=== PATIENT | male | born 1985 | race Caucasian/White ===

== ENCOUNTER 2016-05-31 10:28 | Inpatient (IN) | payer SELFPAY ==
[2016-05-31] VITALS (8 sets, daily range): BP systolic 128–150; BP diastolic 67–85; PULSE 67–97; RESP 16–22; TEMP 96.4–99; O2SAT 96–99
[~2016-05-31] VITALS: Ht 195.6 cm; Wt 78.0 kg
[2016-05-31] MEDS ORDERED: LORazepam 2 MG/ML VIAL IV ONE (10:45)
[2016-05-31] MEDS ORDERED: SODIUM CHLOR 0.9% 1000 ML INJ 1,000 ML IV ONE ×2 (10:45→13:00)
[2016-05-31 11:10] LABS: AUTOMATED NEUTROPHIL # 8.9 TH/MM3 (1.8-7.7); BASOPHIL # 0.1 TH/MM3 (0-0.2); BASOPHIL % 1.1 % (0.0-2.0); EOSINOPHIL # 0.1 TH/MM3 (0-0.4); EOSINOPHIL % 0.9 % (0.0-4.0); HEMATOCRIT 39.9 % (39.0-51.0); HEMO FLAGS DIFF FINAL; LYMPH % 20.8 % (9.0-44.0); LYMPHOCYTE # 2.8 TH/MM3 (1.0-4.8); MEAN CELL VOLUME 85.7 FL (80.0-100.0); MEAN CORPUSCULAR HEMOGLOBIN 29.4 PG (27.0-34.0); MEAN CORPUSCULAR HGB CONC 34.3 % (32.0-36.0); MONO % 10.6 % (0.0-8.0); NEUT % 66.6 % (16.0-70.0); PLATELET COUNT 207 TH/MM3 (150-450); RED BLOOD COUNT 4.66 MIL/MM3 (4.50-5.90); RED CELL DISTRIBUTION WIDTH 13.2 % (11.6-17.2); WHITE BLOOD COUNT 13.4 TH/MM3 (4.0-11.0)
[2016-05-31 11:24] LABS: ALT (GPT) 120 U/L (12-78); ANION GAP 12 MEQ/L (5-15); AST (GOT) 127 U/L (15-37); BICARBONATE 21.2 MEQ/L (21.0-32.0); BLOOD UREA NITROGEN 30 MG/DL (7-18); CHLORIDE 107 MEQ/L (98-107); GLOMERULAR FILTRATION RATE 83 ML/MIN (>89); POTASSIUM 3.6 MEQ/L (3.5-5.1); SODIUM (NA) 140 MEQ/L (136-145)
[2016-05-31 11:26] LABS: ACETAMINOPHEN LESS THAN 2.0 MCG/ML (10.0-30.0)
[2016-05-31 11:37] LABS: ALKALINE PHOSPHATASE 81 U/L (45-117); CREATINE KINASE 3627 U/L (39-308); TOTAL BILIRUBIN ADULT 0.9 MG/DL (0.2-1.0)
[2016-05-31 11:43] LABS: BLOOD, URINE NEG (NEG); COMMENT (UR) CULT NOT INDICATED; CULTURE IF INDICATED CULT NOT INDICATED; GLUCOSE,URINE NEG (NEG); GRANULAR CAST, URINE 6 /lpf; HYALINE CAST, URINE 5 /lpf (RARE); KETONE, URINE 10 mg/dL (NEG); MUCUS URINE FEW /lpf (OCC); NITRITE,URINE NEG (NEG); PH, URINE 5.5 (5.0-8.5); SQUAMOUS EPITHELIAL CELL URINE <1 /hpf (0-5); URINE COLOR YELLOW (YELLW/STRAW)
[2016-05-31 12:00] LABS: CKMB 50.2 NG/ML (0.5-3.6)
[2016-05-31 12:06] LABS: AMPHETAMINE, URINE POS (NEG); BARBITURATES, URINE NEG (NEG); COCAINE, URINE POS (NEG)
--- NOTE | 2016-05-31 13:24 | EKG ---
Date Performed: 05/31/2016 Time Performed: 10:32:28 PTAGE: 31 years EKG: Sinus rhythm POSSIBLE RIGHT VENTRICULAR CONDUCTION DELAY BORDERLINE ECG PREVIOUS TRACING : 01/05/2016 20.06 No significant change from previous tracing noted. DOCTOR: Refugio Whittaker Interpretating Date/Time 05/31/2016 13:24:44
--- NOTE | 2016-05-31 15:15 | PD ---
HPI Chief Complaint: Alcohol/Drug Intoxication Time Seen by Provider: 10:45 Travel History International Travel<30 days: No Contact w/Intl Traveler<30days: No Traveled to known affect area: No History of Present Illness HPI Patient is a 31 year old male who comes in under a Forte Act after using flacca and meth for 6 days. He says he has not slept in 6 days. He denies chest pain or SOB at this time. He has no complaints, but is unable to sit still and provide much other history. PFSH Past Medical History Cancer: No Cardiovascular Problems: No Diminished Hearing: No Endocrine: No Genitourinary: No Hepatitis: Yes (C) Immune Disorder: No Medical other: No (ivdu and abuse) Musculoskeletal: No Neurologic: No Psychiatric: No Reproductive: No Respiratory: No Immunizations Current: Yes Influenza Vaccination: Yes Past Surgical History Surgical History: No Previous Surgery Social History Alcohol Use: No Tobacco Use: Yes (2-3 CIG A DAY) Substance Use: Yes (by records-CRACK USE, FLAKKA, IVDA, DILAUDID, HERION/to me states iv meth) Allergies-Medications (Allergen,Severity, Reaction): Coded Allergies: No Known Allergies (Verified , 05/31/16) Reported Meds & Prescriptions Reported Meds & Active Scripts Active No Active Prescriptions or Reported Medications Review of Systems ROS Limitations: Intoxication, Altered Mental Status General / Constitutional: No: Fever, Chills HENT: No: Headaches Cardiovascular: No: Chest Pain or Discomfort Respiratory: No: Shortness of Breath Physical Exam Narrative GENERAL: awake and alert, agitated, moving all over the stretcher. SKIN: Warm and dry. No lesions or signs of infection. HEAD: Atraumatic. Normocephalic. EYES: Pupils equal and round. No scleral icterus. EOMI ENT: Mucous membranes pink and moist. NECK: Trachea midline. No JVD. CARDIOVASCULAR: tachycardia. No murmur appreciated. RESPIRATORY: No accessory muscle use. Clear to auscultation. Breath sounds equal bilaterally. GASTROINTESTINAL: Abdomen soft, non-tender, nondistended. MUSCULOSKELETAL: No obvious deformities. No clubbing. No cyanosis. No edema. NEUROLOGICAL: Awake and alert. No obvious cranial nerve deficits. Motor grossly within normal limits. PSYCHIATRIC: Appropriate mood and affect; insight and judgment normal. Data Data Last Documented VS Vital Signs Date Time Temp Pulse Resp B/P Pulse Ox O2 Delivery O2 Flow Rate FiO2 05/31/16 14:20 78 16 144/76 97 Nasal Cannula 2 05/31/16 10:31 99.0 Orders Complete Blood Count With Diff (05/31/16 10:45) Comprehensive Metabolic Panel (05/31/16 10:45) Iv Access Insert/Monitor (05/31/16 10:45) Ecg Monitoring (05/31/16 10:45) Lorazepam Inj (Ativan Inj) (05/31/16 10:45) Drug Screen, Random Urine (05/31/16 10:45) Alcohol (Ethanol) (05/31/16 10:45) Salicylates (Aspirin) (05/31/16 10:45) Tylenol (Acetaminophen) (05/31/16 10:45) Creatine Kinase (Cpk) (05/31/16 10:45) Urinalysis - C+S If Indicated (05/31/16 10:45) Sodium Chlor 0.9% 1000 Ml Inj (Ns 1000 M (05/31/16 10:45) CKMB (05/31/16 10:50) CKMB% (05/31/16 10:50) Electrocardiogram (05/31/16 10:32) Sodium Chlor 0.9% 1000 Ml Inj (Ns 1000 M (05/31/16 13:00) Admit Order (Ed Use Only) (05/31/16 ) Labs Laboratory Tests Test 05/31/16 05/31/16 05/31/16 00:00 10:50 10:55 Urine Opiates Screen POS Urine Barbiturates Screen NEG Urine Amphetamines Screen POS Urine Benzodiazepines Screen NEG Urine Cocaine Screen POS Urine Cannabinoids Screen NEG White Blood Count 13.4 TH/MM3 Red Blood Count 4.66 MIL/MM3 Hemoglobin 13.7 GM/DL Hematocrit 39.9 % Mean Corpuscular Volume 85.7 FL Mean Corpuscular Hemoglobin 29.4 PG Mean Corpuscular Hemoglobin 34.3 % Concent Red Cell Distribution Width 13.2 % Platelet Count 207 TH/MM3 Mean Platelet Volume 9.1 FL Neutrophils (%) (Auto) 66.6 % Lymphocytes (%) (Auto) 20.8 % Monocytes (%) (Auto) 10.6 % Eosinophils (%) (Auto) 0.9 % Basophils (%) (Auto) 1.1 % Neutrophils # (Auto) 8.9 TH/MM3 Lymphocytes # (Auto) 2.8 TH/MM3 Monocytes # (Auto) 1.4 TH/MM3 Eosinophils # (Auto) 0.1 TH/MM3 Basophils # (Auto) 0.1 TH/MM3 CBC Comment DIFF FINAL Differential Comment Sodium Level 140 MEQ/L Potassium Level 3.6 MEQ/L Chloride Level 107 MEQ/L Carbon Dioxide Level 21.2 MEQ/L Anion Gap 12 MEQ/L Blood Urea Nitrogen 30 MG/DL Creatinine 1.03 MG/DL Estimat Glomerular Filtration 83 ML/MIN Rate Random Glucose 54 MG/DL Calcium Level 9.5 MG/DL Total Bilirubin 0.9 MG/DL Aspartate Amino Transf 127 U/L (AST/SGOT) Alanine Aminotransferase 120 U/L (ALT/SGPT) Alkaline Phosphatase 81 U/L Total Creatine Kinase 3627 U/L Creatine Kinase MB 50.2 NG/ML Creatine Kinase MB % 1.4 % Total Protein 7.6 GM/DL Albumin 4.1 GM/DL Salicylates Level LESS THAN 1.7 MG/DL Acetaminophen Level LESS THAN 2.0 MCG/ML Ethyl Alcohol Level LESS THAN 3 MG/DL Urine Color YELLOW Urine Turbidity CLEAR Urine pH 5.5 Urine Specific [place] 1.030 Urine Protein 30 mg/dL Urine Glucose (UA) NEG mg/dL Urine Ketones 10 mg/dL Urine Occult Blood NEG Urine Nitrite NEG Urine Bilirubin NEG Urine Urobilinogen LESS THAN 2.0 MG/DL Urine Leukocyte Esterase NEG Urine RBC 2 /hpf Urine WBC 3 /hpf Urine Squamous Epithelial <1 /hpf Cells Urine Hyaline Casts 5 /lpf Urine Granular Casts 6 /lpf Urine Mucus FEW /lpf Microscopic Urinalysis Comment CULT NOT INDICATED MDM Medical Decision Making Medical Screen Exam Complete: Yes Emergency Medical Condition: Yes Medical Record Reviewed: Yes Interpretation(s) ECG shows NSR at 94, no ST elevation or depression Differential Diagnosis drug overdose vs electrolyte abnormalities vs psychosis Narrative Course Patient is a 31 year old male who comes in as a Forte Act after using multiple stimulants. He is unable to sit still on exam. IV established, Labs sent. Labs concerning for elevated CPK. Cr within normal limits. Patient given IVF and Ativan. Placed in observation to ensure resolution of Rhabdomyolysis. Diagnosis Primary Impression: Rhabdomyolysis Qualified Code: M62.82 - Non-traumatic rhabdomyolysis Admitting Information Admitting Physician Requests: Observation Scripts No Active Prescriptions or Reported Meds Condition: Yue Pereira MD May 31, 2016 15:14
[2016-05-31] MEDS ORDERED: ONDANSETRON HCL 4 MG/2 ML VIAL IV PUSH PRN (15:30)
--- NOTE | 2016-05-31 15:30 | HHI.HP ---
[facility] No Primary Care Physician Admission Diagnosis Rhabdomyolisis Diagnoses: (1) Drug overdose Diagnosis: Principal (2) Rhabdomyolysis Diagnosis: Principal Chief Complaint: drug overdose Travel History International Travel<30 Days: No Contact w/Intl Traveler <30 Da: No Traveled to Known Affected Are: No History of Present Illness patient is a 31 y/o male with history of hepatitis C who was brought to ER with drug overdose. he's not a good historian- however he says that he used Flacca and Meth last night. he received a dose of ativan earlier today. he denies any chest pain, sob, nausea or vomiting. Review of Systems ROS Limitations: Poor Historian Past Family Social History Past Medical History hepatitis C Past Surgical History none reported. Reported Medications none reported. Allergies: Coded Allergies: No Known Allergies (Verified , 05/31/16) Active Ordered Medications Current Medications Lorazepam 2 mg 2 mg ONCE ONCE IV Last administered on 05/31/16 10:53; Start 05/31/16 at 10:45; Stop 05/31/16 at 10:47; Status DC Sodium Chloride 1,000 ml @ 999 mls/hr BOLUS ONCE IV Last administered on 05/31 10:53; Start 05/31/16 at 10:45; Stop 05/31/16 at 11:45; Status DC Sodium Chloride 1,000 ml @ 999 mls/hr BOLUS ONCE IV Last administered on 05/31 13:20; Start 05/31/16 at 13:00; Stop 05/31/16 at 14:00; Status DC Sodium Chloride (NS 1000 ml Inj) 1,000 ml @ 125 mls/hr Q8H IV ; Start 05/31/16 at 15:30; Status UNV Ondansetron HCl (Zofran Inj) 4 mg Q8HR PRN IV PUSH NAUSEA; Start 05/31/16 at 15 :30; Status UNV Social History smokes a pack a day- uses cocaine and Flacca. doesn't drink. Physical Exam Vital Signs Vital Signs Date Time Temp Pulse Resp B/P Pulse Ox O2 Delivery O2 Flow Rate FiO2 05/31/16 14:20 78 16 144/76 97 Nasal Cannula 2 05/31/16 13:20 72 16 137/85 97 Nasal Cannula 2 05/31/16 12:26 81 18 142/81 96 Nasal Cannula 2 05/31/16 11:09 99 Nasal Cannula 2 05/31/16 10:38 97 22 134/67 96 Room Air 05/31/16 10:31 99.0 20 96 Physical Exam GENERAL: This is a well-nourished, well-developed patient, in no apparent distress. SKIN: No rashes, ecchymoses or lesions. Cool and dry. HEAD: Atraumatic. Normocephalic. No temporal or scalp tenderness. EYES: Pupils equal round and reactive. Extraocular motions intact. No scleral icterus. No injection or drainage. ENT: Nose without bleeding, purulent drainage or septal hematoma. Throat without erythema, tonsillar hypertrophy or exudate. Uvula midline. Airway patent. NECK: Trachea midline. No JVD or lymphadenopathy. Supple, nontender, no meningeal signs. CARDIOVASCULAR: Regular rate and rhythm without murmurs, gallops, or rubs. RESPIRATORY: Clear to auscultation. Breath sounds equal bilaterally. No wheezes , rales, or rhonchi. GASTROINTESTINAL: Abdomen soft, non-tender, nondistended. No hepato-splenomegaly , or palpable masses. No guarding. MUSCULOSKELETAL: Extremities without clubbing, cyanosis, or edema. No joint tenderness, effusion, or edema noted. No calf tenderness. Negative Homans sign bilaterally. NEUROLOGICAL: awake but somewhat restless. Laboratory Laboratory Tests Test 05/31/16 05/31/16 05/31/16 00:00 10:50 10:55 Urine Opiates Screen POS Urine Barbiturates Screen NEG Urine Amphetamines Screen POS Urine Benzodiazepines Screen NEG Urine Cocaine Screen POS Urine Cannabinoids Screen NEG White Blood Count 13.4 Red Blood Count 4.66 Hemoglobin 13.7 Hematocrit 39.9 Mean Corpuscular Volume 85.7 Mean Corpuscular Hemoglobin 29.4 Mean Corpuscular Hemoglobin 34.3 Concent Red Cell Distribution Width 13.2 Platelet Count 207 Mean Platelet Volume 9.1 Neutrophils (%) (Auto) 66.6 Lymphocytes (%) (Auto) 20.8 Monocytes (%) (Auto) 10.6 Eosinophils (%) (Auto) 0.9 Basophils (%) (Auto) 1.1 Neutrophils # (Auto) 8.9 Lymphocytes # (Auto) 2.8 Monocytes # (Auto) 1.4 Eosinophils # (Auto) 0.1 Basophils # (Auto) 0.1 CBC Comment DIFF FINAL Differential Comment Sodium Level 140 Potassium Level 3.6 Chloride Level 107 Carbon Dioxide Level 21.2 Anion Gap 12 Blood Urea Nitrogen 30 Creatinine 1.03 Estimat Glomerular Filtration 83 Rate Random Glucose 54 Calcium Level 9.5 Total Bilirubin 0.9 Aspartate Amino Transf 127 (AST/SGOT) Alanine Aminotransferase 120 (ALT/SGPT) Alkaline Phosphatase 81 Total Creatine Kinase 3627 Creatine Kinase MB 50.2 Creatine Kinase MB % 1.4 Total Protein 7.6 Albumin 4.1 Salicylates Level LESS THAN 1.7 Acetaminophen Level LESS THAN 2.0 Ethyl Alcohol Level LESS THAN 3 Urine Color YELLOW Urine Turbidity CLEAR Urine pH 5.5 Urine Specific [place] 1.030 Urine Protein 30 Urine Glucose (UA) NEG Urine Ketones 10 Urine Occult Blood NEG Urine Nitrite NEG Urine Bilirubin NEG Urine Urobilinogen LESS THAN 2.0 Urine Leukocyte Esterase NEG Urine RBC 2 Urine WBC 3 Urine Squamous Epithelial <1 Cells Urine Hyaline Casts 5 Urine Granular Casts 6 Urine Mucus FEW Microscopic Urinalysis Comment CULT NOT INDICATED Result Diagram: 05/31/16 1050 05/31/16 1050 Imaging EKG; sinus rhythm Assessment and Plan Assessment and Plan A/P - drug overdose continue supportive care with IV fluid and neuro-checks -rhabdomyolysis- continue aggressive IV hydration- monitor CPK and renal function -hypoglycemia- start on D5W- will monitor accu-check closely -elevated LFT's due to hepatitis C and rhabdomyolysis- will monitor Discussed Condition With ER physician and the patient. Problem Qualifiers (1) Rhabdomyolysis: Qualified Code: M62.82 - Non-traumatic rhabdomyolysis Duyen Martinez MD May 31, 2016 15:30
[2016-05-31] MEDS: LORazepam 2 MG/ML VIAL IV PUSH PRN ×2 (15:42→23:33)
[2016-05-31] MEDS: DEXT 5%-NACL 0.9% 1000 ML INJ 1,000 ML IV SCH (15:48)
[2016-05-31] MEDS ORDERED: SODIUM CHLOR 0.9% 1000 ML INJ 1,000 ML IV SCH (16:00)
[2016-06-01] VITALS (7 sets, daily range): BP systolic 128–158; BP diastolic 74–90; PULSE 74–97; RESP 16–23; TEMP 95.3–98.4; O2SAT 97–100
[2016-06-01] MEDS: DEXT 5%-NACL 0.9% 1000 ML INJ 1,000 ML IV SCH ×3 (00:50→17:18)
[2016-06-01] MEDS: LORazepam 2 MG/ML VIAL IV PUSH PRN ×3 (04:20→21:09)
[2016-06-01 04:51] LABS: AUTOMATED NEUTROPHIL # 3.8 TH/MM3 (1.8-7.7); BASOPHIL % 0.6 % (0.0-2.0); EOSINOPHIL # 0.4 TH/MM3 (0-0.4); EOSINOPHIL % 5.9 % (0.0-4.0); HEMO FLAGS DIFF FINAL; LYMPHOCYTE # 2.3 TH/MM3 (1.0-4.8); MEAN CELL VOLUME 86.8 FL (80.0-100.0); MEAN CORPUSCULAR HEMOGLOBIN 29.8 PG (27.0-34.0); MEAN CORPUSCULAR HGB CONC 34.3 % (32.0-36.0); MONO % 11.9 % (0.0-8.0); NEUT % 50.6 % (16.0-70.0); PLATELET COUNT 194 TH/MM3 (150-450); RED BLOOD COUNT 4.61 MIL/MM3 (4.50-5.90); RED CELL DISTRIBUTION WIDTH 13.5 % (11.6-17.2); WHITE BLOOD COUNT 7.4 TH/MM3 (4.0-11.0)
[2016-06-01 05:28] LABS: ALKALINE PHOSPHATASE 69 U/L (45-117); ALT (GPT) 97 U/L (12-78); ANION GAP 8 MEQ/L (5-15); AST (GOT) 99 U/L (15-37); BLOOD UREA NITROGEN 17 MG/DL (7-18); CHLORIDE 108 MEQ/L (98-107); CREATINE KINASE 1525 U/L (39-308); GLOMERULAR FILTRATION RATE 141 ML/MIN (>89); POTASSIUM 3.4 MEQ/L (3.5-5.1); SODIUM (NA) 139 MEQ/L (136-145)
[2016-06-01 05:49] LABS: CKMB 26.8 NG/ML (0.5-3.6)
--- NOTE | 2016-06-01 12:09 | HHI.PR ---
Subjective Remarks in no acute distress. denies pain. accu-checks stable. d/w the RN and no acute issues over night. Objective Vitals Vital Signs Date Time Temp Pulse Resp B/P Pulse Ox O2 Delivery O2 Flow Rate FiO2 06/01/16 11:50 96.4 75 20 145/82 100 06/01/16 08:00 95.3 77 20 149/79 98 06/01/16 00:00 98.4 87 16 128/74 99 05/31/16 21:06 98.8 82 18 132/83 98 05/31/16 17:30 96.4 72 18 128/82 99 05/31/16 15:39 67 18 150/81 99 Nasal Cannula 2 05/31/16 14:20 78 16 144/76 97 Nasal Cannula 2 05/31/16 13:20 72 16 137/85 97 Nasal Cannula 2 05/31/16 12:26 81 18 142/81 96 Nasal Cannula 2 I/O 05/31/16 05/31/16 05/31/16 06/01/16 06/01/16 06/01/16 07:00 15:00 23:00 07:00 15:00 23:00 Intake Total 300 ml Output Total 650 ml Balance -350 ml Intake Oral 300 ml Output Urine Total 650 ml Result Diagram: 06/01/16 0344 06/01/16 0344 Objective Remarks GENERAL: This is a well-nourished, well-developed patient, in no apparent distress. CARDIOVASCULAR: Regular rate and regular rhythm without murmurs, gallops, or rubs. RESPIRATORY: Clear to auscultation. Breath sounds equal bilaterally. No wheezes , rales, or rhonchi. GASTROINTESTINAL: Abdomen soft, non-tender, nondistended. Normal, active bowel sounds MUSCULOSKELETAL: Extremities without clubbing, cyanosis, or edema. NEURO: Alert & Oriented x4 to person, place, time, situation. Moves all ext x4 Procedures none Medications and IVs Current Medications Lorazepam 2 mg 2 mg ONCE ONCE IV Last administered on 05/31/16 10:53; Start 05/31/16 at 10:45; Stop 05/31/16 at 10:47; Status DC Sodium Chloride 1,000 ml @ 999 mls/hr BOLUS ONCE IV Last administered on 05/31 10:53; Start 05/31/16 at 10:45; Stop 05/31/16 at 11:45; Status DC Sodium Chloride 1,000 ml @ 999 mls/hr BOLUS ONCE IV Last administered on 05/31 13:20; Start 05/31/16 at 13:00; Stop 05/31/16 at 14:00; Status DC Sodium Chloride (NS 1000 ml Inj) 1,000 ml @ 125 mls/hr Q8H IV ; Start 05/31/16 at 16:00; Stop 05/31/16 at 16:00; Status DC Ondansetron HCl 4 mg 4 mg Q8HR PRN IV PUSH NAUSEA; Start 05/31/16 at 15:30 Dextrose/Sodium Chloride (D5W-NS 1000 ml Inj) 1,000 ml @ 125 mls/hr Q8H IV Last administered on 06/01/16 08:51; Start 05/31/16 at 15:45 Lorazepam (Ativan Inj) 1 mg Q4H PRN IV PUSH ANXIETY Last administered on 04:20; Start 05/31/16 at 15:45 A/P Assessment and Plan - drug overdose continue supportive care with IV fluid and neuro-checks -rhabdomyolysis- improving- continue aggressive IV hydration- monitor CPK and renal function -hypoglycemia- resolved- started on D5W- -elevated LFT's due to hepatitis C and rhabdomyolysis- will monitor Discharge Planning possible dc home in if stable. Duyen Martinez MD Jun 01, 2016 12:09
[2016-06-01] MEDS ORDERED: POTASSIUM CHLORIDE 20 MEQ CONTROLLED RELEASE TAB PO ONE (12:15)
[2016-06-02] MEDS ORDERED: KETOROLAC TROMETHAMINE 60 MG/2 ML (IM) VIAL IM ONE (01:30)
[2016-06-02] MEDS: DEXT 5%-NACL 0.9% 1000 ML INJ 1,000 ML IV SCH (02:16)
[2016-06-02 04:51] VITALS: BP 128/76; PULSE 87; RESP 18; TEMP 98.4; O2SAT 98
[2016-06-02 05:38] LABS: CKMB 7.2 NG/ML (0.5-3.6)
--- NOTE | 2016-06-02 08:16 | HHI.PR ---
Subjective Remarks in no acute distress. denies pain. resting comfortably. d/w the RN and no acute issues over night. Objective Vitals Vital Signs Date Time Temp Pulse Resp B/P Pulse Ox O2 Delivery O2 Flow Rate FiO2 06/02/16 04:51 98.4 87 18 128/76 98 06/01/16 23:44 97.6 74 23 157/90 99 06/01/16 19:17 98.0 97 18 158/86 98 06/01/16 16:05 95.4 80 20 145/89 97 06/01/16 11:50 96.4 75 20 145/82 100 06/01/16 08:16 98 Nasal Cannula 1.00 I/O 06/01/16 06/01/16 06/01/16 06/02/16 06/02/16 06/02/16 07:00 15:00 23:00 07:00 15:00 23:00 Intake Total 1440 ml 2640 ml 240 ml Output Total 1200 ml 4150 ml Balance 240 ml -1510 ml 240 ml Intake Oral 1440 ml 2640 ml 240 ml Output Urine Total 1200 ml 4150 ml # Voids 1 # Bowel Movements 1 Result Diagram: 06/01/16 0344 06/01/16 0344 Objective Remarks GENERAL: This is a well-nourished, well-developed patient, in no apparent distress. CARDIOVASCULAR: Regular rate and regular rhythm without murmurs, gallops, or rubs. RESPIRATORY: Clear to auscultation. Breath sounds equal bilaterally. No wheezes , rales, or rhonchi. GASTROINTESTINAL: Abdomen soft, non-tender, nondistended. Normal, active bowel sounds MUSCULOSKELETAL: Extremities without clubbing, cyanosis, or edema. NEURO: Alert & Oriented x4 to person, place, time, situation. Moves all ext x4 Procedures none Medications and IVs Current Medications Lorazepam 2 mg 2 mg ONCE ONCE IV Last administered on 05/31/16 10:53; Start 05/31/16 at 10:45; Stop 05/31/16 at 10:47; Status DC Sodium Chloride 1,000 ml @ 999 mls/hr BOLUS ONCE IV Last administered on 05/31 10:53; Start 05/31/16 at 10:45; Stop 05/31/16 at 11:45; Status DC Sodium Chloride 1,000 ml @ 999 mls/hr BOLUS ONCE IV Last administered on 05/31 13:20; Start 05/31/16 at 13:00; Stop 05/31/16 at 14:00; Status DC Sodium Chloride (NS 1000 ml Inj) 1,000 ml @ 125 mls/hr Q8H IV ; Start 05/31/16 at 16:00; Stop 05/31/16 at 16:00; Status DC Ondansetron HCl 4 mg 4 mg Q8HR PRN IV PUSH NAUSEA; Start 05/31/16 at 15:30 Dextrose/Sodium Chloride (D5W-NS 1000 ml Inj) 1,000 ml @ 125 mls/hr Q8H IV Last administered on 06/02/16 02:16; Start 05/31/16 at 15:45 Lorazepam (Ativan Inj) 1 mg Q4H PRN IV PUSH ANXIETY Last administered on 21:09; Start 05/31/16 at 15:45 Potassium Chloride (KCl) 20 meq ONCE ONCE PO Last administered on 06/01/16 12 :29; Start 06/01/16 at 12:15; Stop 06/01/16 at 12:16; Status DC Ketorolac Tromethamine (Toradol Inj) 30 mg ONCE ONCE IM ; Start 06/02/16 at 01: 30; Stop 06/02/16 at 01:31; Status DC A/P Assessment and Plan - drug overdose- continue supportive care . counselled on drug abuse cessation. -rhabdomyolysis- improved after IV fluid. -hypoglycemia- resolved- -elevated LFT's due to hepatitis C and rhabdomyolysis- Discharge Planning discharge today. f/u; pcp. d/w the patient and case management. Duyen Martinez MD Jun 02, 2016 08:16
--- NOTE | 2016-06-02 08:17 | HHI.DCPOC ---
Discharge Care Plan Diagnosis: (1) Drug overdose (2) Rhabdomyolysis Your Health Problems Are: Anxiety Goals to Promote Your Health * To prevent worsening of your condition and complications * To maintain your health at the optimal level Directions to Meet Your Goals Take your medications as prescribed Follow your dietary instruction Follow activity as directed Keep your appointments as scheduled Take your immunizations and boosters as scheduled If your symptoms worsen call your PCP, if no PCP go to Urgent Care Center or Emergency Room Smoking is Dangerous to Your Health. Avoid second hand smoke Call the 24-hour hour crisis hotline for domestic abuse at Duyen Martinez MD Jun 02, 2016 08:17
--- NOTE | 2016-06-02 08:18 | HHI.DS ---
Discharge Summary Admission Date May 31, 2016 at 15:49 Discharge Date: Jun 02, 2016 Admitting Diagnosis Rhabdomyolisis (1) Drug overdose ICD Code: T50.901A Diagnosis: Principal (2) Rhabdomyolysis ICD Code: M62.82 Diagnosis: Principal Procedures none Brief History - From Admission patient is a 31 y/o male with history of hepatitis C who was brought to ER with drug overdose. he's not a good historian- however he says that he used Flacca and Meth last night. he received a dose of ativan earlier today. he denies any chest pain, sob, nausea or vomiting. CBC/BMP: 06/01/16 0344 06/01/16 0344 Significant Findings Laboratory Tests Test 05/31/16 05/31/16 05/31/16 06/01/16 00:00 10:50 10:55 03:44 Urine Opiates Screen POS (NEG) Urine Amphetamines Screen POS (NEG) Urine Cocaine Screen POS (NEG) White Blood Count 13.4 TH/MM3 (4.0-11.0) Monocytes (%) (Auto) 10.6 % 11.9 % (0.0-8.0) (0.0-8.0) Neutrophils # (Auto) 8.9 TH/MM3 (1.8-7.7) Monocytes # (Auto) 1.4 TH/MM3 (0-0.9) Blood Urea Nitrogen 30 MG/DL (7-18) Estimat Glomerular Filtration 83 ML/MIN (>89) Rate Random Glucose 54 MG/DL (74-106) Aspartate Amino Transf 127 U/L (15-37) 99 U/L (15-37) (AST/SGOT) Alanine Aminotransferase 120 U/L (12-78) 97 U/L (12-78) (ALT/SGPT) Total Creatine Kinase 3627 U/L 1525 U/L (39-308) (39-308) Creatine Kinase MB 50.2 NG/ML 26.8 NG/ML (0.5-3.6) (0.5-3.6) Salicylates Level LESS THAN 1.7 MG/DL (2.8-20.0) Acetaminophen Level LESS THAN 2.0 MCG/ML (10.0-30.0) Urine Protein 30 mg/dL (NEG-TRACE) Urine Ketones 10 mg/dL (NEG) Urine Mucus FEW /lpf (OCC) Eosinophils (%) (Auto) 5.9 % (0.0-4.0) Potassium Level 3.4 MEQ/L (3.5-5.1) Chloride Level 108 MEQ/L (98-107) Calcium Level 8.1 MG/DL (8.5-10.1) Total Protein 6.2 GM/DL (6.4-8.2) Albumin 3.1 GM/DL (3.4-5.0) Test 06/02/16 03:52 Total Creatine Kinase 540 U/L (39-308) Creatine Kinase MB 7.2 NG/ML (0.5-3.6) PE at Discharge GENERAL: This is a well-nourished, well-developed patient, in no apparent distress. CARDIOVASCULAR: Regular rate and regular rhythm without murmurs, gallops, or rubs. RESPIRATORY: Clear to auscultation. Breath sounds equal bilaterally. No wheezes , rales, or rhonchi. GASTROINTESTINAL: Abdomen soft, non-tender, nondistended. Normal, active bowel sounds MUSCULOSKELETAL: Extremities without clubbing, cyanosis, or edema. NEURO: Alert & Oriented x4 to person, place, time, situation. Moves all ext x4 Hospital Course - drug overdose- continue supportive care . counselled on drug abuse cessation. -rhabdomyolysis- improved after IV fluid. -hypoglycemia- resolved- -elevated LFT's due to hepatitis C and rhabdomyolysis- Pt Condition on Discharge: Fair Discharge Disposition: Trnsfr to Other Facility Discharge Time: <= 30 minutes Discharge Instructions DIET: Follow Instructions for: As Tolerated, No Restrictions Activities you can perform: Regular-No Restrictions Follow up Referrals: PCP Follow-up Duyen Martinez MD Jun 02, 2016 08:18
[2016-06-02 16:03] VITALS: BP 174/94; PULSE 83; RESP 18; TEMP 97.6; O2SAT 95
[2016-06-02 20:02] VITALS: BP 156/80; PULSE 98; RESP 18; TEMP 98.8; O2SAT 98
== END 2016-06-03 00:51 | disposition left against medical advice (07) | DRG 918 ==
LOC: NEPE 10:28 → NEDA 15:18 → OBSVTOIN 15:49 → NEPGCP 17:28
PROVIDERS: ADMIT Internal Medicine; ATTEND Internal Medicine
DX: T43.621A Poisoning by amphetamines, accidental (unintentional), initial encounter (principal); M62.82 Rhabdomyolysis; Y92.9 Unspecified place or not applicable; F17.210 Nicotine dependence, cigarettes, uncomplicated; E16.0 Drug-induced hypoglycemia without coma; B18.2 Chronic viral hepatitis C; F14.10 Cocaine abuse, uncomplicated
CPT/HCPCS: 80053; 80307; 80320; 80329; 81001; 82550; 82552; 82948; 85025; 93005; 96361; 96374; G0480; J2060; J7030; J7042

== ENCOUNTER 2016-09-17 23:13 | Emergency (ER) | payer SELFPAY ==
[~2016-09-17] VITALS: Ht 188 cm; Wt 78.0 kg
[2016-09-17 23:17] VITALS: BP 134/81; PULSE 72; RESP 18; TEMP 97.8; O2SAT 99
[2016-09-18] MEDS ORDERED: LIDOCAINE 1%/EPINEPHrine 1:100,000 SOLN 20 ML VIAL INFIL ONE
[2016-09-18] MEDS ORDERED: SODIUM CHLORIDE 0.9% FLUSH 10 ML FLUSH IVF PRN
[2016-09-18 00:17] LABS: AUTOMATED NEUTROPHIL # 7.8 TH/MM3 (1.8-7.7); BASOPHIL # 0.1 TH/MM3 (0-0.2); EOSINOPHIL # 0.4 TH/MM3 (0-0.4); HEMATOCRIT 43.1 % (39.0-51.0); LYMPHOCYTE # 3.3 TH/MM3 (1.0-4.8); MEAN CELL VOLUME 85.9 FL (80.0-100.0); MEAN CORPUSCULAR HEMOGLOBIN 27.9 PG (27.0-34.0); MEAN CORPUSCULAR HGB CONC 32.5 % (32.0-36.0); MONO % 9.2 % (0.0-8.0); NEUT % 60.8 % (16.0-70.0); PLATELET COUNT 259 TH/MM3 (150-450); RED BLOOD COUNT 5.02 MIL/MM3 (4.50-5.90); RED CELL DISTRIBUTION WIDTH 14.3 % (11.6-17.2); WHITE BLOOD COUNT 12.9 TH/MM3 (4.0-11.0)
[2016-09-18] MEDS ORDERED: CLIN1CAP5 PO (00:19)
--- NOTE | 2016-09-18 00:23 | PD ---
HPI Chief Complaint: Chest Pain Time Seen by Provider: 23:39 Travel History International Travel<30 days: No Contact w/Intl Traveler<30days: No Traveled to known affect area: No History of Present Illness HPI 31-year-old male arrives complaining of left forearm abscess for a few days. Pain is now constant, severe and worse with palpation. He's also had chest pain for about 2-3 months. 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 He is currently using. The quality of the chest pain is somewhat vague however he likens it to "eating malagasy fries too quickly." He has had no fever however reports a cough. He describes muscle aches and pains and arthralgias generalized. No history of diabetes hypertension or hyperlipidemia. He smokes 3 cigarettes a day or so. PFSH Past Medical History Cancer: No Cardiovascular Problems: No Diminished Hearing: No Endocrine: No Genitourinary: No Hepatitis: Yes (C) Immune Disorder: No Implanted Vascular Access Dvce: No Musculoskeletal: No Neurologic: No Psychiatric: No Reproductive: No Respiratory: No Immunizations Current: Yes Tetanus Vaccination: < 5 Years Influenza Vaccination: Yes Past Surgical History Surgical History: No Previous Surgery Social History Alcohol Use: No Tobacco Use: Yes (2-3 CIG A DAY) Substance Use: Yes (by records-CRACK USE, FLAKKA, IVDA, DILAUDID, HERION/to me states iv meth) Allergies-Medications (Allergen,Severity, Reaction): Coded Allergies: No Known Allergies (Verified , 09/17/16) Reported Meds & Prescriptions Reported Meds & Active Scripts Active Clindamycin (Clindamycin HCl) 150 Mg Cap 450 Mg PO Q8HR 10 Days Review of Systems Except as stated in HPI: all other systems reviewed are Neg General / Constitutional: No: Fever, Chills Cardiovascular: Positive: Chest Pain or Discomfort Psychiatric: Positive: Substance Abuse Physical Exam Narrative GENERAL: 31 yo M, WNWD, NAD SKIN: Warm and dry. L forearm abscess swelling with marked TTP. HEAD: Atraumatic. Normocephalic. EYES: Pupils equal and round. No scleral icterus. No injection or drainage. ENT: No nasal bleeding or discharge. Mucous membranes pink and moist. NECK: Trachea midline. No JVD. CARDIOVASCULAR: Regular rate and rhythm. No murmur. RESPIRATORY: No accessory muscle use. Clear to auscultation. Breath sounds equal bilaterally. GASTROINTESTINAL: Abdomen soft, non-tender, nondistended. Hepatic and splenic margins not palpable. MUSCULOSKELETAL: Extremities without clubbing, cyanosis, or edema. No obvious deformities. NEUROLOGICAL: Awake and alert. No obvious cranial nerve deficits. Motor grossly within normal limits. Five out of 5 muscle strength in the arms and legs. Normal speech. PSYCHIATRIC: Appropriate mood and affect; insight and judgment normal. Data Data Last Documented VS Vital Signs Date Time Temp Pulse Resp B/P Pulse Ox O2 Delivery O2 Flow Rate FiO2 09/17/16 23:32 61 18 100 09/17/16:17 97.8 134/81 Room Air VS reviewed Orders Electrocardiogram (09/17/16 23:51) Basic Metabolic Panel (Bmp) (09/17/16 23:51) Ckmb (Isoenzyme) Profile (09/17/16 23:51) Complete Blood Count With Diff (09/17/16 23:51) Magnesium (Mg) (09/17/16 23:51) Troponin I (09/17/16 23:51) Chest, Single Ap (09/17/16 23:51) Ecg Monitoring (09/17/16 23:51) Iv Access Insert/Monitor (09/17/16:51) Oximetry (09/17/16 23:51) Oxygen Administration (09/17/16 23:51) Sodium Chloride 0.9% Flush (Ns Flush) (09/18/16 00:00) Ct Pulmonary Angiogram (09/17/16 23:51) Urinalysis - C+S If Indicated (09/17/16 23:51) Drug Screen, Random Urine (09/17/16 23:51) Lidocai-Epi 1%-1:100,000 Inj (Xylocaine- (09/18/16 00:00) Lidocai-Epi 2%-1:100,000 Inj (Xylocaine- (09/18/16 00:30) CKMB (09/18/16 00:00) CKMB% (09/18/16 00:00) Sodium Chlor 0.9% 1000 Ml Inj (Ns 1000 M (09/18/16 01:00) Iohexol 350 Inj (Omnipaque 350 Inj) (09/18/16 00:56) Wound Culture And Gram Stain (09/18/16 01:31) Labs Laboratory Tests Test 09/18/16 00:00 White Blood Count 12.9 TH/MM3 Red Blood Count 5.02 MIL/MM3 Hemoglobin 14.0 GM/DL Hematocrit 43.1 % Mean Corpuscular Volume 85.9 FL Mean Corpuscular Hemoglobin 27.9 PG Mean Corpuscular Hemoglobin 32.5 % Concent Red Cell Distribution Width 14.3 % Platelet Count 259 TH/MM3 Mean Platelet Volume 8.8 FL Neutrophils (%) (Auto) 60.8 % Lymphocytes (%) (Auto) 26.0 % Monocytes (%) (Auto) 9.2 % Eosinophils (%) (Auto) 3.0 % Basophils (%) (Auto) 1.0 % Neutrophils # (Auto) 7.8 TH/MM3 Lymphocytes # (Auto) 3.3 TH/MM3 Monocytes # (Auto) 1.2 TH/MM3 Eosinophils # (Auto) 0.4 TH/MM3 Basophils # (Auto) 0.1 TH/MM3 CBC Comment AUTO DIFF Differential Comment AUTO DIFF CONFIRMED Sodium Level 138 MEQ/L Potassium Level 4.3 MEQ/L Chloride Level 101 MEQ/L Carbon Dioxide Level 33.2 MEQ/L Anion Gap 4 MEQ/L Blood Urea Nitrogen 14 MG/DL Creatinine 0.79 MG/DL Estimat Glomerular Filtration 113 ML/MIN Rate Random Glucose 91 MG/DL Calcium Level 8.9 MG/DL Magnesium Level 2.2 MG/DL Total Creatine Kinase 212 U/L Creatine Kinase MB 2.1 NG/ML Troponin I LESS THAN 0.02 NG/ML MDM Medical Decision Making Medical Screen Exam Complete: Yes Emergency Medical Condition: Yes Medical Record Reviewed: Yes Differential Diagnosis Endocarditis, abscess, cellulitis, pneumonia, coronary artery disease, polysubstance abuse Narrative Course CBC & BMP Diagram 09/18/16 00:00 Tn < 0.02 EKG: Sinus rate 65 normal axis and intervals Last Impressions Chest X-Ray 09/17/162350 Signed Impressions: Service Date/Time: September 23:52 - CONCLUSION: 1. No acute cardiopulmonary disease. Mark Rodriguez MD CT Angiography 09/17/162350 Signed Impressions: Service Date/Time: Sunday, September 18, 2016 00:46 - CONCLUSION: 1. No evidence of pulmonary embolism. 2. Subsegmental atelectasis left base. Mark Rodriguez MD We have thoroughly evaluated this 31 yo IVDU's chest pain and endocarditis is considered reasonably safely excluded. L forearm abscess drained. Clinda script. Return in 2 days discussed. Pt counseled re lifestyle modification. He verbalized understanding. He's ready for discharge. Diagnosis Primary Impression: Cellulitis, upper arm Additional Impressions: Chest pain Qualified Code: R07.9 - Chest pain, unspecified type Abscess Atelectasis Referrals: RETURN TO ER IN 2 DAYS FOR WOUND EVALUATION 2 days [facility] Additional Instructions: You have a choice when it comes to health care, and we are glad that you chose [facility]. Hopefully, we have met your expectations on today's visit. You are welcome to return to [facility] at any time, as we are committed to meeting the health care needs of our community. Med/Other Pt SpecificInfo: Prescription(s) given Scripts Clindamycin 150 Mg [id number] Mg PO Q8HR 10 Days Ref 0 Prov:Driss Longo MD 09/18/16 Disposition: 01 DISCHARGE HOME Condition: Stable rDiss Longo MD Sep 18, 2016 00:23
[2016-09-18 00:24] LABS: HEMO FLAGS AUTO DIFF
[2016-09-18] MEDS ORDERED: LIDOCAINE 2%/EPINEPHrine 1:100,000 30ML MDV INFIL ONE (00:30)
--- NOTE | 2016-09-18 00:32 | RADRPT ---
EXAM DATE/TIME: 09/17/2016 23:52 [facility] COMPARISON: CHEST SINGLE AP, January 05, 2016, 19:53. INDICATIONS : Chest pain. MEDICAL HISTORY : None. SURGICAL HISTORY : None. ENCOUNTER: Initial ACUITY: 3 months PAIN SCORE: 6/10 LOCATION: chest FINDINGS: A single view of the chest demonstrates the lungs to be symmetrically aerated without evidence of mas s, infiltrate or effusion. The cardiomediastinal contours are unremarkable. Osseous structures are intact. CONCLUSION: 1. No acute cardiopulmonary disease. Mark Rodriguez MD on September 18, 2016 at 0:30 Board Certified Radiologist. This report was verified electronically.
[2016-09-18 00:42] LABS: ANION GAP 4 MEQ/L (5-15); BICARBONATE 33.2 MEQ/L (21.0-32.0); BLOOD UREA NITROGEN 14 MG/DL (7-18); CHLORIDE 101 MEQ/L (98-107); GLOMERULAR FILTRATION RATE 113 ML/MIN (>89); MAGNESIUM 2.2 MG/DL (1.5-2.5); POTASSIUM 4.3 MEQ/L (3.5-5.1); SODIUM (NA) 138 MEQ/L (136-145)
[2016-09-18 00:45] LABS: CREATINE KINASE 212 U/L (39-308)
[2016-09-18] MEDS ORDERED: IOHEXOL 350 MG/ML 10 ML VIAL (for RAD DIAG) IV ONE (00:56)
[2016-09-18 00:57] LABS: CKMB 2.1 NG/ML (0.5-3.6)
[2016-09-18] MEDS ORDERED: SODIUM CHLOR 0.9% 1000 ML INJ 1,000 ML IV ONE (01:00)
--- NOTE | 2016-09-18 01:25 | PD ---
Physical Exam Date Seen by Provider: Sep 18, 2016 Time Seen by Provider: 01:23 Narrative Skin: Patient has a raised indurated tender abscess to left forearm. The area is erythematous and warm. The area measures approximately 4 x 4 centimeters. No pointing or fluctuance. Data Data Last Documented VS Vital Signs Date Time Temp Pulse Resp B/P Pulse Ox O2 Delivery O2 Flow Rate FiO2 09/17/16 23:32 61 18 100 09/17/16:17 97.8 134/81 Room Air Orders Electrocardiogram (09/17/16 23:51) Basic Metabolic Panel (Bmp) (09/17/16 23:51) Ckmb (Isoenzyme) Profile (09/17/16 23:51) Complete Blood Count With Diff (09/17/16:51) Magnesium (Mg) (09/17/16:51) Troponin I (09/17/16:51) Chest, Single Ap (09/17/16:51) Ecg Monitoring (09/17/16:51) Iv Access Insert/Monitor (09/17/16:51) Oximetry (09/17/16:51) Oxygen Administration (09/17/16:51) Sodium Chloride 0.9% Flush (Ns Flush) (09/18/16 00:00) Ct Pulmonary Angiogram (09/17/16 23:51) Urinalysis - C+S If Indicated (09/17/16 23:51) Drug Screen, Random Urine (09/17/16 23:51) Lidocai-Epi 1%-1:100,000 Inj (Xylocaine- (09/18/16 00:00) Lidocai-Epi 2%-1:100,000 Inj (Xylocaine- (09/18/16 00:30) CKMB (09/18/16 00:00) CKMB% (09/18/16 00:00) Sodium Chlor 0.9% 1000 Ml Inj (Ns 1000 M (09/18/16 01:00) Iohexol 350 Inj (Omnipaque 350 Inj) (09/18/16 00:56) Labs Laboratory Tests Test 09/18/16 00:00 White Blood Count 12.9 TH/MM3 Red Blood Count 5.02 MIL/MM3 Hemoglobin 14.0 GM/DL Hematocrit 43.1 % Mean Corpuscular Volume 85.9 FL Mean Corpuscular Hemoglobin 27.9 PG Mean Corpuscular Hemoglobin 32.5 % Concent Red Cell Distribution Width 14.3 % Platelet Count 259 TH/MM3 Mean Platelet Volume 8.8 FL Neutrophils (%) (Auto) 60.8 % Lymphocytes (%) (Auto) 26.0 % Monocytes (%) (Auto) 9.2 % Eosinophils (%) (Auto) 3.0 % Basophils (%) (Auto) 1.0 % Neutrophils # (Auto) 7.8 TH/MM3 Lymphocytes # (Auto) 3.3 TH/MM3 Monocytes # (Auto) 1.2 TH/MM3 Eosinophils # (Auto) 0.4 TH/MM3 Basophils # (Auto) 0.1 TH/MM3 CBC Comment AUTO DIFF Sodium Level 138 MEQ/L Potassium Level 4.3 MEQ/L Chloride Level 101 MEQ/L Carbon Dioxide Level 33.2 MEQ/L Anion Gap 4 MEQ/L Blood Urea Nitrogen 14 MG/DL Creatinine 0.79 MG/DL Estimat Glomerular Filtration 113 ML/MIN Rate Random Glucose 91 MG/DL Calcium Level 8.9 MG/DL Magnesium Level 2.2 MG/DL Total Creatine Kinase 212 U/L Creatine Kinase MB 2.1 NG/ML Troponin I LESS THAN 0.02 NG/ML [facility] Medical Record Reviewed: Yes Supervised Visit with SPIKE: Yes Interpretation(s) Laboratory Tests Test 09/18/16 00:00 White Blood Count 12.9 TH/MM3 Red Blood Count 5.02 MIL/MM3 Hemoglobin 14.0 GM/DL Hematocrit 43.1 % Mean Corpuscular Volume 85.9 FL Mean Corpuscular Hemoglobin 27.9 PG Mean Corpuscular Hemoglobin 32.5 % Concent Red Cell Distribution Width 14.3 % Platelet Count 259 TH/MM3 Mean Platelet Volume 8.8 FL Neutrophils (%) (Auto) 60.8 % Lymphocytes (%) (Auto) 26.0 % Monocytes (%) (Auto) 9.2 % Eosinophils (%) (Auto) 3.0 % Basophils (%) (Auto) 1.0 % Neutrophils # (Auto) 7.8 TH/MM3 Lymphocytes # (Auto) 3.3 TH/MM3 Monocytes # (Auto) 1.2 TH/MM3 Eosinophils # (Auto) 0.4 TH/MM3 Basophils # (Auto) 0.1 TH/MM3 CBC Comment AUTO DIFF Sodium Level 138 MEQ/L Potassium Level 4.3 MEQ/L Chloride Level 101 MEQ/L Carbon Dioxide Level 33.2 MEQ/L Anion Gap 4 MEQ/L Blood Urea Nitrogen 14 MG/DL Creatinine 0.79 MG/DL Estimat Glomerular Filtration 113 ML/MIN Rate Random Glucose 91 MG/DL Calcium Level 8.9 MG/DL Magnesium Level 2.2 MG/DL Total Creatine Kinase 212 U/L Creatine Kinase MB 2.1 NG/ML Troponin I LESS THAN 0.02 NG/ML Last 24 hours Impressions Chest X-Ray 09/17/16 4051 Signed Impressions: Service Date/Time: September 23:52 - CONCLUSION: 1. No acute cardiopulmonary disease. Mark Rodriguez MD Differential Diagnosis MDM: High Differential diagnoses: Abscess, folliculitis, cellulitis, lymphangitis, abrasion, contact dermatitis Narrative Course An incision and drainage has been performed Procedures Procedure Narrative I&D abscess: After the risks and benefits were discussed the following procedure was performed. The skin is prepped and draped in the usual sterile fashion using Betadine. The abscess is anesthetized with 1% lidocaine with epinephrine and 0.5% Marcaine . After adequate anesthesia, an 11 blade scalpel is used to make a 2.5 cm central incision. Perulant material is expressed and cultured. Loculations are broken up using curved Nikky forceps. The wound is cleansed deeply using dilute Betadine and peroxide on Q-tips. The wound is packed open using iodoform gauze. A clean dressing is applied. The patient tolerated the procedure well. There was no complications. Follow-up instructions were given to the patient. Diagnosis Primary Impression: Cellulitis, upper arm Additional Impressions: Abscess Chest pain Qualified Code: R07.9 - Chest pain, unspecified type Referrals: RETURN TO ER IN 2 DAYS FOR WOUND EVALUATION 2 days [facility] Additional Instruction: You have a choice when it comes to health care, and we are glad that you chose [facility]. Hopefully, we have met your expectations on today's visit. You are welcome to return to [facility] at any time, as we are committed to meeting the health care needs of our community. Scripts Clindamycin 150 Mg [id number] Mg PO Q8HR 10 Days Ref 0 Prov:Driss Longo MD 09/18/16 Disposition: 01 DISCHARGE HOME Condition: Stable Nicolas Pace Sep 18, 2016 01:25
--- NOTE | 2016-09-18 01:31 | RADRPT ---
EXAM DATE/TIME: 09/18/2016 00:46 [facility] COMPARISON: No previous studies available for comparison. INDICATIONS : Chest pain. IV CONTRAST: 65 cc Omnipaque 350 (iohexol) IV RADIATION DOSE: 9.67 CTDIvol (mGy) MEDICAL HISTORY : Hepatitis C. IV Drug use. SURGICAL HISTORY : None. ENCOUNTER: Initial ACUITY: 1 day PAIN SCALE: 6/10 LOCATION: Bilateral chest TECHNIQUE: Volumetric scanning of the chest was performed using a pulmonary embolism protocol MIP images were re constructed. Using automated exposure control and adjustment of the mA and/or kV according to patien t size, radiation dose was kept as low as reasonably achievable to obtain optimal diagnostic quality images. FINDINGS: Examination of the pulmonary vasculature demonstrates good filling of the main, lobar and segmental b ranches. There are no filling defects to suggest pulmonary embolism. Multiplanar reconstructions are also unremarkable. There is subsegmental atelectasis in the left base. No pulmonary nodules are identified. No pleural e ffusions are identified. Examination of the mediastinum demonstrates no abnormally enlarged lymph nod es by CT criteria. No axillary or hilar abnormalities are identified. Coronary artery calcifications are not present. The visualized upper abdomen demonstrates no abnormality. CONCLUSION: 1. No evidence of pulmonary embolism. 2. Subsegmental atelectasis left base. Mark Rodriguez MD on September 18, 2016 at 1:26 Board Certified Radiologist. This report was verified electronically.
[2016-09-18] MEDS ORDERED: ZOFR4TAB3 SL (01:37)
[2016-09-18 01:55] LABS: SCAN/DIFF AUTO DIFF CONFIRMED
--- NOTE | 2016-09-18 22:33 | EKG ---
Date Performed: 09/17/2016 Time Performed: 23:36:45 PTAGE: 31 years EKG: Sinus rhythm NORMAL ECG PREVIOUS TRACING : 05/31/2016 10.32 DOCTOR: Ambika Srivastava Interpretating Date/Time 09/18/2016 22:31:33
== END 2016-09-18 02:06 | disposition home or self-care (01) ==
LOC: NEPC 23:13
DX: L03.114 Cellulitis of left upper limb (principal); R07.9 Chest pain, unspecified; L02.414 Cutaneous abscess of left upper limb; J98.11 Atelectasis; M79.1 Myalgia; M25.50 Pain in unspecified joint; Z72.0 Tobacco use; Z86.19 Personal history of other infectious and parasitic diseases
CPT/HCPCS: 10061; 71010; 71275; 80048; 82550; 82552; 83735; 84484; 85025; 93005; 99285; J7030; Q9967

== ENCOUNTER 2016-11-04 05:49 | Emergency (ER) | payer SELFPAY ==
[~2016-11-04] VITALS: Ht 195.6 cm; Wt 80.0 kg
[~2016-11-04 05:49] MED LIST: CLIN1CAP5 PO
[2016-11-04 05:54] VITALS: BP 147/84; PULSE 65; RESP 16; O2SAT 99
--- NOTE | 2016-11-04 05:58 | PD ---
HPI Chief Complaint: left flank pain Time Seen by Provider: 05:53 Travel History International Travel<30 days: No Contact w/Intl Traveler<30days: No History of Present Illness HPI The patient is a 31 year old male who presents to the [facility] emergency department with a history of left flank pain that he reports awoken from sound sleep prior to arrival. The patient reports that over the last week he has had intermittent dysuria. He reports that after awakening he did have urinary urgency with dysuria. He denies ever having a pain like this previously. He reports that radiates into the left lower quadrant of the abdomen. He does report having a family history of kidney stones. He denies having any penile discharge. He denies having any new sexual partners or concerns about sexually transmitted infections. On review of systems: The patient denies any recent fevers cough, congestion, neck pain, chest pain, shortness of breath, vomiting, diarrhea, or neurologic symptoms. The patient reports that he last moved his bowels earlier this evening. [facility] Past Medical History Narrative Medical The patient's past medical history is significant for a prior history of IV drug use and hepatitis C. He reports that he last used drugs 1-2 months ago. Cancer: No Cardiovascular Problems: No Diminished Hearing: No Endocrine: No Genitourinary: No Hepatitis: Yes (C) Immune Disorder: No Implanted Vascular Access Dvce: No Musculoskeletal: No Neurologic: No Psychiatric: No Reproductive: No Respiratory: No Immunizations Current: Yes Past Surgical History Narrative Surgical The patient denies any past surgical history. Social History Alcohol Use: No Tobacco Use: Yes (5-6 CIG A DAY) Substance Use: Yes (by records-CRACK USE, FLAKKA, IVDA, DILAUDID, [place]ION/[place]) Allergies-Medications (Allergen,Severity, Reaction): Coded Allergies: No Known Allergies (Verified , 09/17/16) Reported Meds & Prescriptions Reported Meds & Active Scripts Active Clindamycin (Clindamycin HCl) 150 Mg Cap 450 Mg PO Q8HR 10 Days Review of Systems Except as stated in HPI: all other systems reviewed are Neg General / Constitutional: No: Fever Eyes: No: Visual changes HENT: No: Headaches Cardiovascular: No: Chest Pain or Discomfort Respiratory: No: Shortness of Breath Gastrointestinal: Positive: Abdominal Pain, No: Nausea, Vomiting, Diarrhea, Changes in Bowel Habits, Indigestion, Loss of Appetite Genitourinary: Positive: Urgency, Dysuria, Flank Pain (left flank pain) Musculoskeletal: No: Pain Skin: No Rash Neurologic: No: Weakness Psychiatric: No: Depression Endocrine: No: Polydipsia Hematologic/Lymphatic: No: Easy Bruising Physical Exam Narrative General: The patient is a well-developed well-nourished male, uncomfortable appearing on arrival due to pain. Head and Neck exam: Head is normocephalic atraumatic. Eyes: EOMI, pupils are equal round and reactive to light. Nose: Midline septum with pink mucous membranes Mouth: Dentition unremarkable. Moist mucus membranes. Posterior oropharynx is not erythematous. No tonsillar hypertrophy. Uvula midline. Airway patent. Neck: No palpable lymphadenopathy. No nuchal rigidity. No thyromegaly. Cardiovascular: Regular rate and rhythm without murmurs, gallops, or rubs. Lungs: Clear to auscultation bilaterally. No wheezes, rhonchi, or rales. Abdomen: Soft, with tenderness on palpation in the left lower quadrant of the abdomen and suprapubic area, no other tenderness on palpation of the other quadrants of the abdomen.. No guarding, rebound, or rigidity. Normal bowel sounds are audible. No tenderness on palpation of McBurney's point. Negative [place] sign. Extremities: No clubbing, cyanosis, or edema. 2+ pulses in all 4 extremities. Back: No spinous process tenderness to palpation. Left-sided CVA tenderness on palpation. Neurologic Exam: Grossly nonfocal. Skin Exam: No rash noted. Intact skin that is warm and dry. Data Data Last Documented VS Vital Signs Date Time Temp Pulse Resp B/P Pulse Ox O2 Delivery O2 Flow Rate FiO2 11/04/16 07:34 71 19 120/75 100 Room Air Orders Complete Blood Count With Diff (11/04/16 05:53) Comprehensive Metabolic Panel (11/04/16 05:53) C-Reactive Protein (Crp) (11/04/16 05:53) Lipase (11/04/16 05:53) Urinalysis - C+S If Indicated (11/04/16 05:53) Magnesium (Mg) (11/04/16 05:53) Ct Abd/Pel W/O Iv Contrast (11/04/16 05:53) Iv Access Insert/Monitor (11/04/16 05:53) Ecg Monitoring (11/04/16 05:53) Oximetry (11/04/16 05:53) Drug Screen, Random Urine (11/04/16 05:53) Sodium Chlor 0.9% 1000 Ml Inj (Ns 1000 M (11/04/16 06:45) Ketorolac Inj (Toradol Inj) (11/04/16 06:45) Ondansetron Inj (Zofran Inj) (11/04/16 06:45) Labs Laboratory Tests Test 11/04/16 06:11 White Blood Count 10.2 TH/MM3 Red Blood Count 4.20 MIL/MM3 Hemoglobin 12.1 GM/DL Hematocrit 36.9 % Mean Corpuscular Volume 87.8 FL Mean Corpuscular Hemoglobin 28.9 PG Mean Corpuscular Hemoglobin 32.9 % Concent Red Cell Distribution Width 14.8 % Platelet Count 244 TH/MM3 Mean Platelet Volume 8.2 FL Neutrophils (%) (Auto) 62.0 % Lymphocytes (%) (Auto) 24.1 % Monocytes (%) (Auto) 10.6 % Eosinophils (%) (Auto) 2.5 % Basophils (%) (Auto) 0.8 % Neutrophils # (Auto) 6.3 TH/MM3 Lymphocytes # (Auto) 2.4 TH/MM3 Monocytes # (Auto) 1.1 TH/MM3 Eosinophils # (Auto) 0.3 TH/MM3 Basophils # (Auto) 0.1 TH/MM3 CBC Comment DIFF FINAL Differential Comment Sodium Level 138 MEQ/L Potassium Level 3.3 MEQ/L Chloride Level 104 MEQ/L Carbon Dioxide Level 28.3 MEQ/L Anion Gap 6 MEQ/L Blood Urea Nitrogen 11 MG/DL Creatinine 0.93 MG/DL Estimat Glomerular Filtration 94 ML/MIN Rate Random Glucose 93 MG/DL Calcium Level 8.7 MG/DL Magnesium Level 2.2 MG/DL Total Bilirubin 0.2 MG/DL Aspartate Amino Transf 37 U/L (AST/SGOT) Alanine Aminotransferase 50 U/L (ALT/SGPT) Alkaline Phosphatase 82 U/L C-Reactive Protein 3.17 MG/DL Total Protein 7.4 GM/DL Albumin 3.2 GM/DL Lipase 102 U/L MDM Medical Decision Making Medical Screen Exam Complete: Yes Emergency Medical Condition: Yes Medical Record Reviewed: Yes Interpretation(s) Last Impressions Abdomen/Pelvis CT 11/04/16 0553 Signed Impressions: Service Date/Time: Friday, November 04, 2016 06:24 - CONCLUSION: 1. Mild left hydronephrosis with no renal calculi. 2. The left ureter could not be visualized. There is a tiny 1 mm calcification 2 cm from the left ureterovesicular junction which is nonspecific. This could represent a tiny distal ureteral stone or possible phlebolith. Pankaj Oates MD Differential Diagnosis Renal calculi, versus pyelonephritis, versus musculoskeletal strain, versus diverticulitis, versus cystitis Narrative Course During the course of the patients emergency department visit, the patients history, examination, and differential diagnosis were reviewed with the patient. The patient had IV access obtained and blood work sent for analysis. The patient was placed on a restorative rehab aide with oximetry and blood pressure monitoring. A CT scan of the abdomen and pelvis was ordered without IV contrast. The patient was initially provided normal saline 1 L IV fluid bolus, Toradol 15 mg IV, Zofran 4 mg IV. The patients laboratory studies were reviewed and remarkable for a white count of 10.2, hemoglobin 12.1, platelets 244 with 10.6 monocytes Radiology studies were reviewed and remarkable for a CT scan of the abdomen and pelvis that shows mild left hydronephrosis with no renal calculi, tiny 1 mm calcification 2 cm from the left UVJ junction which is nonspecific this could be a tiny distal ureteral stone or possible phlebolith. The patient's chemistry and urinalysis is currently pending at the conclusion of my shift. The patient's case will be checked out to the oncoming emergency physician to disposition the patient based on the conclusion of the workup. Diagnosis Primary Impression: Acute left flank pain Shameka Goel MD Nov 04, 2016 05:58
--- NOTE | 2016-11-04 06:41 | RADRPT ---
EXAM DATE/TIME: 11/04/2016 06:24 [place] COMPARISON: No previous studies available for comparison. INDICATIONS : Left flank pain. Dysuria. ORAL CONTRAST: No oral contrast ingested. RADIATION DOSE: 13.29 CTDIvol (mGy) MEDICAL HISTORY : None SURGICAL HISTORY : None. ENCOUNTER: Initial ACUITY: 1 day PAIN SCALE: 4/10 LOCATION: Left flank TECHNIQUE: Volumetric scanning of the abdomen and pelvis was performed. Using automated exposure control and ad justment of the mA and/or kV according to patient size, radiation dose was kept as low as reasonably achievable to obtain optimal diagnostic quality images. DICOM format image data is available electro nically for review and comparison. FINDINGS: LOWER LUNGS: The visualized lower lungs are clear. LIVER: Homogeneous density without lesion. There is no dilation of the biliary tree. No calcified gallston es. SPLEEN: Normal size without lesion. There are multiple benign calcifications. PANCREAS: Within normal limits. KIDNEYS: The right kidney is unremarkable in appearance. The left kidney demonstrates mild hydronephrosis and prominence of the renal pelvis. The left ureter could not be visualized and is not enlarged. There is a single small calcification in the left lower pelvis located approximately 2 cm from the ureteroves icular junction. This measures 1 mm in size. ADRENAL GLANDS: Within normal limits. VASCULAR: There is no aortic aneurysm. BOWEL/MESENTERY: The stomach, small bowel, and colon demonstrate no acute abnormality. There is no free intraperitone al air or fluid. ABDOMINAL WALL: Within normal limits. RETROPERITONEUM: There is no lymphadenopathy. BLADDER: No wall thickening or mass. REPRODUCTIVE: Within normal limits. INGUINAL: There is no lymphadenopathy or hernia. MUSCULOSKELETAL: Within normal limits for patient age. CONCLUSION: 1. Mild left hydronephrosis with no renal calculi. 2. The left ureter could not be visualized. There is a tiny 1 mm calcification 2 cm from the left ure terovesicular junction which is nonspecific. This could represent a tiny distal ureteral stone or pos sible phlebolith. Pankaj Oates MD on November 04, 2016 at 6:35 Board Certified Radiologist. This report was verified electronically.
[2016-11-04] MEDS ORDERED: ONDANSETRON HCL 4 MG/2 ML VIAL IV PUSH ONE (06:45)
[2016-11-04] MEDS ORDERED: SODIUM CHLOR 0.9% 1000 ML INJ 1,000 ML IV ONE (06:45)
[2016-11-04] MEDS ORDERED: KETOROLAC TROMETHAMINE 30 MG/ML (IVP) VIAL IV PUSH ONE (06:45)
[2016-11-04 06:53] LABS: AUTOMATED NEUTROPHIL # 6.3 TH/MM3 (1.8-7.7); BASOPHIL # 0.1 TH/MM3 (0-0.2); BASOPHIL % 0.8 % (0.0-2.0); EOSINOPHIL # 0.3 TH/MM3 (0-0.4); EOSINOPHIL % 2.5 % (0.0-4.0); HEMATOCRIT 36.9 % (39.0-51.0); HEMO FLAGS DIFF FINAL; LYMPH % 24.1 % (9.0-44.0); LYMPHOCYTE # 2.4 TH/MM3 (1.0-4.8); MEAN CELL VOLUME 87.8 FL (80.0-100.0); MEAN CORPUSCULAR HEMOGLOBIN 28.9 PG (27.0-34.0); MEAN CORPUSCULAR HGB CONC 32.9 % (32.0-36.0); MONO % 10.6 % (0.0-8.0); PLATELET COUNT 244 TH/MM3 (150-450); RED CELL DISTRIBUTION WIDTH 14.8 % (11.6-17.2); WHITE BLOOD COUNT 10.2 TH/MM3 (4.0-11.0)
[2016-11-04 07:17] LABS: ALKALINE PHOSPHATASE 82 U/L (45-117); TOTAL BILIRUBIN ADULT 0.2 MG/DL (0.2-1.0)
[2016-11-04 07:18] LABS: ALT (GPT) 50 U/L (12-78); ANION GAP 6 MEQ/L (5-15); AST (GOT) 37 U/L (15-37); BICARBONATE 28.3 MEQ/L (21.0-32.0); BLOOD UREA NITROGEN 11 MG/DL (7-18); CHLORIDE 104 MEQ/L (98-107); GLOMERULAR FILTRATION RATE 94 ML/MIN (>89); MAGNESIUM 2.2 MG/DL (1.5-2.5); POTASSIUM 3.3 MEQ/L (3.5-5.1); SODIUM (NA) 138 MEQ/L (136-145)
[2016-11-04 07:34] VITALS: BP 120/75; PULSE 71; RESP 19; O2SAT 100
[2016-11-04] MEDS ORDERED: POTASSIUM CHLORIDE 25 MEQ EFFERVESCENT TAB PO ONE (08:45)
[2016-11-04 09:00] LABS: BACTERIA, URINE OCC /hpf; BLOOD, URINE MOD (NEG); COMMENT (UR) CULTURE INDICATED; CULTURE IF INDICATED CULTURE INDICATED; GLUCOSE,URINE NEG (NEG); KETONE, URINE NEG (NEG); MUCUS URINE FEW /lpf (OCC); NITRITE,URINE NEG (NEG); PH, URINE 5.5 (5.0-8.5); SQUAMOUS EPITHELIAL CELL URINE <1 /hpf (0-5); URINE COLOR YELLOW (YELLW/STRAW)
[2016-11-04 09:01] LABS: AMPHETAMINE, URINE NEG (NEG); BARBITURATES, URINE NEG (NEG); COCAINE, URINE POS (NEG)
[2016-11-04] MEDS ORDERED: NITROFURANTOIN MONOHYD MACROCR 100 MG CAP PO ONE (09:15)
[2016-11-04] MEDS ORDERED: HYDR-3516 PO (09:17)
[2016-11-04] MEDS ORDERED: MACR100C2 PO (09:17)
[2016-11-04] MEDS ORDERED: ZOFR4TAB3 SL (09:17)
--- NOTE | 2016-11-04 09:18 | PD ---
Physical Exam Date Seen by Provider: Nov 04, 2016 Time Seen by Provider: 09:13 Narrative 31-year-old male came to the emergency room with history of flank pain. He was seen by the previous ER physician. Please refer to her history and physical for details. The sign out was to follow-up on his blood test result. CT scan showed mild left hydronephrosis and possible passage of stone. All the test results are back. His potassium was mildly low and I replaced it with by mouth potassium. His UA just came back and shows large amount of RBCs as well as some WBC showing some possibility of UTI. I've given him a dose of Macrobid. I just went and reassessed him. He says the pain is better at this point minutes 4 out of 10. He feels comfortable going home. He'll be discharged home on Macrobid. I discussed about the pathology of stone formation but since we don't have any stone to analyze I could not given any dietary restrictions. He was recommended to drink lots of fluid especially during summer months to keep himself hydrated. Data Data Last Documented VS Vital Signs Date Time Temp Pulse Resp B/P Pulse Ox O2 Delivery O2 Flow Rate FiO2 11/04/16 09:51 86 17 132/82 98 11/04/16 07:34 Room Air Orders Complete Blood Count With Diff (11/04/16 05:53) Comprehensive Metabolic Panel (11/04/16 05:53) C-Reactive Protein (Crp) (11/04/16 05:53) Lipase (11/04/16 05:53) Urinalysis - C+S If Indicated (11/04/16 05:53) Magnesium (Mg) (11/04/16 05:53) Ct Abd/Pel W/O Iv Contrast (11/04/16 05:53) Iv Access Insert/Monitor (11/04/16 05:53) Ecg Monitoring (11/04/16 05:53) Oximetry (11/04/16 05:53) Drug Screen, Random Urine (11/04/16 05:53) Sodium Chlor 0.9% 1000 Ml Inj (Ns 1000 M (11/04/16 06:45) Ketorolac Inj (Toradol Inj) (11/04/16 06:45) Ondansetron Inj (Zofran Inj) (11/04/16 06:45) Potassium Chloride Eff (K-Lyte Cl Eff) (11/04/16 08:45) Urine Culture (11/04/16 08:40) Nitrofurantoin Monohyd Macrocr (Macrobid (11/04/16 09:15) Labs Laboratory Tests Test 11/04/16 11/04/16 06:11 08:40 White Blood Count 10.2 TH/MM3 Red Blood Count 4.20 MIL/MM3 Hemoglobin 12.1 GM/DL Hematocrit 36.9 % Mean Corpuscular Volume 87.8 FL Mean Corpuscular Hemoglobin 28.9 PG Mean Corpuscular Hemoglobin 32.9 % Concent Red Cell Distribution Width 14.8 % Platelet Count 244 TH/MM3 Mean Platelet Volume 8.2 FL Neutrophils (%) (Auto) 62.0 % Lymphocytes (%) (Auto) 24.1 % Monocytes (%) (Auto) 10.6 % Eosinophils (%) (Auto) 2.5 % Basophils (%) (Auto) 0.8 % Neutrophils # (Auto) 6.3 TH/MM3 Lymphocytes # (Auto) 2.4 TH/MM3 Monocytes # (Auto) 1.1 TH/MM3 Eosinophils # (Auto) 0.3 TH/MM3 Basophils # (Auto) 0.1 TH/MM3 CBC Comment DIFF FINAL Differential Comment Sodium Level 138 MEQ/L Potassium Level 3.3 MEQ/L Chloride Level 104 MEQ/L Carbon Dioxide Level 28.3 MEQ/L Anion Gap 6 MEQ/L Blood Urea Nitrogen 11 MG/DL Creatinine 0.93 MG/DL Estimat Glomerular Filtration 94 ML/MIN Rate Random Glucose 93 MG/DL Calcium Level 8.7 MG/DL Magnesium Level 2.2 MG/DL Total Bilirubin 0.2 MG/DL Aspartate Amino Transf 37 U/L (AST/SGOT) Alanine Aminotransferase 50 U/L (ALT/SGPT) Alkaline Phosphatase 82 U/L C-Reactive Protein 3.17 MG/DL Total Protein 7.4 GM/DL Albumin 3.2 GM/DL Lipase 102 U/L Urine Color YELLOW Urine Turbidity CLEAR Urine pH 5.5 Urine Specific Schuyler 1.015 Urine Protein TRACE mg/dL Urine Glucose (UA) NEG mg/dL Urine Ketones NEG mg/dL Urine Occult Blood MOD Urine Nitrite NEG Urine Bilirubin NEG Urine Urobilinogen LESS THAN 2.0 MG/DL Urine Leukocyte Esterase MOD Urine RBC 147 /hpf Urine WBC 20 /hpf Urine Squamous Epithelial <1 /hpf Cells Urine Bacteria OCC /hpf Urine Mucus FEW /lpf Microscopic Urinalysis Comment CULTURE INDICATED Urine Opiates Screen NEG Urine Barbiturates Screen NEG Urine Amphetamines Screen NEG Urine Benzodiazepines Screen NEG Urine Cocaine Screen POS Urine Cannabinoids Screen NEG MDM Supervised Visit with [facility]KE: No Diagnosis Primary Impression: Acute left flank pain Additional Impressions: Ureteral calculus UTI (urinary tract infection) Qualified Code: N39.0 - Urinary tract infection with hematuria, site unspecified Hematuria Qualified Code: R31.29 - Other microscopic hematuria Cocaine abuse Referrals: Bonilla Frias MD 3 days Additional Instruction: Please return to the ER if the condition worsens or any other new concerns like fever, chills, excessive vomiting and unable to keep the antibiotic down. Otherwise follow-up with the urologist whose name and number been given to you. Take the medications as per the prescription direction. Drink lots of fluid and keep yourself hydrated at all times. Med/Other Pt SpecificInfo: Prescription(s) given Scripts Hydrocodone-Acetaminophen 5-325 mg Tab1 Tab PO Q6H PRN (PAIN) #6 TAB Ref 0 Prov:Blayne Parks MD 11/04/16 Ondansetron Odt (Zofran Odt)4 Mg Tab4 Mg SL Q6HR PRN (Nausea/Vomiting) #10 TAB Ref 0 Prov:Blayne Parks MD 11/04/16 Nitrofurantoin Monohydrate Macrocrystals (Macrobid)100 Mg Ead127 Mg PO BID 10 Days Ref 0 Prov:Blayne Parks MD 11/04/16 Disposition: 01 DISCHARGE HOME Condition: Stable Blayne Parks MD Nov 04, 2016 09:18
[2016-11-04 09:51] VITALS: BP 132/82
== END 2016-11-04 09:52 | disposition home or self-care (01) ==
LOC: NEPE 05:49
DX: N13.2 Hydronephrosis with renal and ureteral calculous obstruction (principal); N39.0 Urinary tract infection, site not specified; R31.29 Other microscopic hematuria; F14.10 Cocaine abuse, uncomplicated
CPT/HCPCS: 74176; 80053; 80307; 81001; 83690; 83735; 85025; 86140; 87086; 96361; 96374; 96375; 99285; J1885; J2405; J7030

== ENCOUNTER 2017-03-19 10:02 | Emergency (ER) | payer SELFPAY ==
[~2017-03-19] VITALS: Ht 180.3 cm; Wt 80.0 kg
[~2017-03-19 10:02] MED LIST changes: +CLIN150C14 PO; -CLIN1CAP5 PO; +HYDR-3516 PO; +MACR100C2 PO; +ZOFR4TAB3 SL
[2017-03-19 10:09] VITALS: BP 145/76; PULSE 109; RESP 16; TEMP 98; O2SAT 97
[2017-03-19 10:22] VITALS: BP 145/76; PULSE 109; RESP 16; TEMP 98; O2SAT 97
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
== END 2017-03-19 13:03 | disposition home or self-care (01) ==
LOC: NEPD 10:02
DX: F12.10 Cannabis abuse, uncomplicated (principal); S60.417A Abrasion of left little finger, initial encounter; F17.210 Nicotine dependence, cigarettes, uncomplicated; W18.30XA Fall on same level, unspecified, initial encounter
CPT/HCPCS: 99282

== ENCOUNTER 2017-12-10 21:20 | Inpatient (IN) ==
[2017-12-10] MEDS ORDERED: Diphtheria/Tetanus/Pertussis Vaccine Inj 0.5 ML Syringe IM ONE (21:40)
[2017-12-10 22:04] LABS: Baso # (Auto) 0.1 th/mm3 (0.0-0.2); Baso % (Auto) 0.9 % (0.0-2.0); Eos # (Auto) 0.1 th/mm3 (0.0-0.4); Eos % (Auto) 1.2 % (0.0-4.0); Hematocrit 34.7 % (39.0-51.0); Hemoglobin 11.9 gm/dL (13.0-17.0); Lymph # (Auto) 3.8 th/mm3 (1.0-4.8); Lymph % (Auto) 41.3 % (9.0-44.0); Mean Corpuscular HGB Conc 34.2 % (32.0-36.0); Mean Corpuscular Hemoglobin 29.6 pg (27.0-34.0); Mean Corpuscular Volume 86.5 fL (80.0-100.0); Mean Platelet Volume 8.1 fL (7.0-11.0); Mono # (Auto) 0.9 th/mm3 (0.0-0.9); Mono % (Auto) 9.7 % (0.0-8.0); Neut # (Auto) 4.3 th/mm3 (1.8-7.7); Neut % (Auto) 46.9 % (16.0-70.0); Platelet Count 258 th/mm3 (150-450); Red Blood Count 4.01 mil/mm3 (4.50-5.90); Red Cell Distribution Width 13.7 % (11.6-17.2); White Blood Count 9.2 th/mm3 (4.0-11.0)
[2017-12-10 22:24] LABS: Calcium 8.6 mg/dL (8.5-10.1); Carbon Dioxide 29.9 meq/L (21.0-32.0); Potassium 3.2 meq/L (3.5-5.1)
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
[2017-12-10] MEDS ORDERED: Morphine Inj 4 MG/ML Vial IV.PUSH ONE ×2 (22:55→23:29)
[2017-12-10] MEDS ORDERED: ceFAZolin 2 GM Premix Inj 2 GM/50 ML PIGGYBACK IV.SIG ONE (23:08)
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
[2017-12-10 23:41] LABS: Activated Partial Thrombo Time 24.7 sec (24.3-30.1); INR 1.1 Ratio; Prothrombin Time 11.3 sec (9.8-11.6)
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
[2017-12-11] MEDS ORDERED: Lidocaine PF 1% Inj 5 ML Syringe INFILTRATN ONE (00:24)
[2017-12-11] MEDS ORDERED: Succinylcholine Inj 100 MG/5 ML Syringe IV.PUSH ONE (00:24)
[2017-12-11] MEDS ORDERED: Glycopyrrolate Inj 1 MG/5 ML Syringe IV.PUSH ONE (00:24)
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
[2017-12-11] MEDS ORDERED: fentaNYL Citrate Inj 100 MCG/2 ML Ampul ONE (01:42)
[2017-12-11] MEDS: Enoxaparin Inj 30 MG/0.3 ML Syringe SQ SCH ×3 (01:50→21:42)
[2017-12-11] MEDS ORDERED: *morphine SULFATE 4 MG/ML PERIprocedure ONLY ONE (02:00)
[2017-12-11] MEDS ORDERED: Chlorhexidine Gluconate 2% 1 Pack (2 Cloths) TOPICAL SCH (04:00)
[2017-12-11] MEDS ORDERED: Chlorhexidine Gluconate 2% 1 Pack (2 Cloths) TOPICAL PRN (04:00)
[2017-12-11] MEDS ORDERED: Dextrose 50% in Water 50 ML Vial IV.PUSH PRN (07:08)
[2017-12-11] MEDS ORDERED: Insulin NovoLOG Aspart Correctional Sugar Inj SQ SCH (08:00)
[2017-12-11 08:23] LABS: Baso % (Auto) 0.3 % (0.0-2.0); Eos % (Auto) 0.2 % (0.0-4.0); Hematocrit 26.7 % (39.0-51.0); Hemoglobin 9.2 gm/dL (13.0-17.0); Lymph # (Auto) 2.1 th/mm3 (1.0-4.8); Lymph % (Auto) 19.6 % (9.0-44.0); Mean Corpuscular HGB Conc 34.4 % (32.0-36.0); Mean Corpuscular Hemoglobin 30.1 pg (27.0-34.0); Mean Corpuscular Volume 87.6 fL (80.0-100.0); Mean Platelet Volume 8.1 fL (7.0-11.0); Mono # (Auto) 0.5 th/mm3 (0.0-0.9); Mono % (Auto) 4.9 % (0.0-8.0); Neut # (Auto) 8.1 th/mm3 (1.8-7.7); Platelet Count 196 th/mm3 (150-450); Red Blood Count 3.05 mil/mm3 (4.50-5.90); Red Cell Distribution Width 13.8 % (11.6-17.2); White Blood Count 10.8 th/mm3 (4.0-11.0)
[2017-12-11] MEDS: Folic Acid 1 MG Tablet PO SCH (08:27)
[2017-12-11] MEDS: Docusate Sodium 100 MG Capsule PO SCH ×2 (08:28→21:38)
[2017-12-11] MEDS ORDERED: Morphine Sulfate Inj 2 MG/ML Vial IV.PUSH PRN (08:29)
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
[2017-12-11 08:49] LABS: Calcium 8.1 mg/dL (8.5-10.1); Carbon Dioxide 29.8 meq/L (21.0-32.0); Potassium 3.7 meq/L (3.5-5.1)
[2017-12-12 04:56] LABS: Albumin 2.6 g/dL (3.4-5.0); Anion Gap 8 meq/L (5-15); Aspartate Aminotransferase 47 U/L (15-37); Blood Urea Nitrogen 12 mg/dL (7-18); Calcium 7.8 mg/dL (8.5-10.1); Carbon Dioxide 31.5 meq/L (21.0-32.0); Chloride 105 meq/L (98-107); Glomerular Filtration Rate Greater Than 89 mL/min (>89); Glucose,Random 106 mg/dL (74-106); Potassium 3.3 meq/L (3.5-5.1); Sodium 144 meq/L (136-145)
[2017-12-12 04:57] LABS: Alanine Aminotransferase 41 U/L (12-78)
[2017-12-12 05:00] LABS: Alkaline Phosphatase 62 U/L (45-117); Total Protein 5.6 g/dL (6.4-8.2)
[2017-12-12] MEDS: Docusate Sodium 100 MG Capsule PO SCH ×2 (08:37→22:15)
[2017-12-12] MEDS: Folic Acid 1 MG Tablet PO SCH (08:38)
[2017-12-12] MEDS: Enoxaparin Inj 30 MG/0.3 ML Syringe SQ SCH ×2 (08:39→22:16)
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
[2017-12-13] MEDS: Folic Acid 1 MG Tablet PO SCH (08:18)
[2017-12-13] MEDS: Docusate Sodium 100 MG Capsule PO SCH (08:18)
[2017-12-13] MEDS: Enoxaparin Inj 30 MG/0.3 ML Syringe SQ SCH (08:18)
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
== END 2017-12-13 13:34 | disposition home or self-care (01) ==
LOC: NEPD 21:20 → HPAC 23:55 → NEPD 12-11 00:12 → HPAC 12-11 01:25 → N06 12-11 02:17
PROVIDERS: ADMIT Surgery; ATTEND Surgery